=== PATIENT | female | born 1970 | race Caucasian/White ===

== ENCOUNTER 2021-07-30 14:33 | Inpatient (IN) | payer MEDICAID ==
[~2021-07-30] VITALS: Ht 165.1 cm; Wt 113.4 kg
[2021-07-30] MEDS ORDERED: CELE200C PO (14:56)
[2021-07-30] MEDS ORDERED: AMLO-212 PO (14:56)
[2021-07-30] MEDS ORDERED: ATOR40TA PO (14:56)
[2021-07-30] MEDS ORDERED: VENL75TA4 PO (14:56)
[2021-07-30] MEDS ORDERED: FERR325T28 PO (14:56)
[2021-07-30] MEDS ORDERED: PANT40TA49 PO (14:56)
[2021-07-30] MEDS ORDERED: ASPI81TA31 PO (14:56)
[2021-07-30] MEDS ORDERED: GABA600T12 PO (14:56)
[2021-07-30] MEDS ORDERED: FURO-152 PO (14:56)
[2021-07-30] MEDS ORDERED: LOSA25TA27 PO (14:56)
[2021-07-30] MEDS ORDERED: IBUP-1955 PO (14:56)
[2021-07-30 15:09] LABS: HEMATOCRIT 37.1 % (31.2-41.9); MEAN CORPUSCULAR HEMOGLOBIN 31.2 uug (24.7-32.8); MEAN CORPUSCULAR VOLUME 89.8 fL (75.5-95.3); PLATELET COUNT (AUTO) 370 K/uL (179-408)
[2021-07-30 15:17] LABS: CARBON DIOXIDE 30 mmol/L (21-32); CHLORIDE 99 mmol/L (98-107); CREATININE 0.9 mg/dL (0.6-1.3); GLUCOSE 95 mg/dL (74-106); POTASSIUM 4.3 mmol/L (3.5-5.1); UREA NITROGEN, BLOOD 16 mg/dL (7-18)
[2021-07-30 15:18] LABS: ETHANOL < 3 MG/DL (0-0)
[2021-07-30 15:23] LABS: ALANINE AMINOTRANSFERASE 14 U/L (14-59); ALKALINE PHOSPHATASE 126 U/L (50-136); ASPARTATE AMINOTRANSFERASE 13 U/L (15-37); BILIRUBIN,DIRECT 0.1 mg/dL (0.0-0.2); BILIRUBIN,TOTAL 0.2 mg/dL (0.2-1.0); TOTAL PROTEIN, SERUM 8.3 g/dL (6.4-8.2)
[2021-07-30 15:28] LABS: ACETAMINOPHEN < 2.0 ug/mL (10-30)
--- NOTE | 2021-07-30 19:36 | NUR ---
placed an in and out cath for urine pt agreed for a male to perform. Clark MILLER charge at bedside to assist. Urine sent to the lab, Dr. Gunn notified.
[2021-07-30 19:43] LABS: *BILIRUBIN,URIN NEGATIVE (NEGATIVE); *CLARITY,URINE CLEAR (CLEAR); *COLOR,URINE YELLOW (YELLOW); *KETONES,URINE 2+ (NEGATIVE); LEUKOCYTE ESTERASE ,URINE NEGATIVE (NEGATIVE); NITRITE, URINE NEGATIVE (NEGATIVE); PH,URINE 6.5 (5.0-8.0); UGLUCOSE NEGATIVE (NEGATIVE)
[2021-07-30 19:46] LABS: *BLOOD, URINE TRACE (NEGATIVE)
[2021-07-30 19:54] LABS: BACTERIA,URINE NONE SEEN /HPF (NONE SEEN); RBC,URINE 0-3 /HPF (0-3); SQUAMOUS EPITHELIAL CELL,UR MANY /HPF (NONE SEEN); WBC,URINE 0-3 /HPF (0-3)
[2021-07-30 20:01] LABS: *AMPHETAMINE, URINE NEGATIVE (NEGATIVE); *CANNABINOID, URINE POSITIVE (NEGATIVE); *COCCAINE, URINE NEGATIVE (NEGATIVE); *OPIATE, URINE NEGATIVE (NEGATIVE); *PHENCYCLIDINE SCREEN,URINE NEGATIVE (NEGATIVE)
--- NOTE | 2021-07-30 22:00 | NUR ---
pt arouses when her name is called no signs of pain noted.
[2021-07-31] VITALS (16 sets, daily range): BP systolic 118–143; BP diastolic 53–97
--- NOTE | 2021-07-31 01:14 | NUR ---
pt a/o denies any pain. no signs of distress. pt was pulled up in the gourney.
--- NOTE | 2021-07-31 01:49 | NUR ---
pt transported to a hospital bed.
--- NOTE | 2021-07-31 02:12 | NUR ---
spoke with Indu MILLER at [facility]. Her call back number is [phone] pt resisides at [address] [place] [address].
--- NOTE | 2021-07-31 03:44 | NUR ---
informed Dr. Gunn of pt's continued tachycardia, increased o2 to 4 liters as spo2 is 91 on 2 liters nc.
[2021-07-31] MEDS ORDERED: IV NS 1000 ML 1,000 ML IV ONE (04:15)
--- NOTE | 2021-07-31 04:29 | NUR ---
pt with increased work of breathing, Dr. Gunn made aware. pt was cleaned had inc of stool and urine. lab called with positive covid results.
--- NOTE | 2021-07-31 04:34 | NUR ---
respiratory therapist Juan Carlos is performing abg.
[2021-07-31] MEDS ORDERED: DEXAMETHASONE SOD PHOSPHATE 4 MG INJ ONE ×2 (04:39→06:54)
[2021-07-31 04:45] LABS: ABG BASE EXCESS -0.1 mmol/L; ABG HCO3 22.2 mmol/L; ABG PCO2 30.2 mmHg (35.0-45.0); ABG PH 7.484 (7.350-7.450); ABG PO2 80.8 mmHg (75.0-100.0); ABG SITE LEFT RADIAL; VENT MODE Nasal Cannula
[2021-07-31] MEDS ORDERED: DEXAMETHASONE SOD PHOSPHATE 4 MG INJ IV ONE ×2 (04:45→07:00)
--- NOTE | 2021-07-31 04:48 | NUR ---
abg ph 7.48 pco2 30.2 po2 80.8 hco3 22.2
[2021-07-31] MEDS ORDERED: IOHEXOL 300MG/ML 100 ML INFUS..BTL ONE (05:07)
[2021-07-31] MEDS ORDERED: SWABABLE VALVE TRANSFER SET EA MC ONE (05:07)
[2021-07-31] MEDS ORDERED: IV NORMAL SALINE 250 ML IV ONE (05:08)
[2021-07-31 05:13] LABS: HEMATOCRIT 36.5 % (31.2-41.9); MEAN CORPUSCULAR HEMOGLOBIN 30.6 uug (24.7-32.8); MEAN CORPUSCULAR VOLUME 88.5 fL (75.5-95.3); PLATELET COUNT (AUTO) 427 K/uL (179-408)
--- NOTE | 2021-07-31 05:25 | NUR ---
pt taken to cat scan by Conner MILLER.
--- NOTE | 2021-07-31 05:50 | NUR ---
pt returned from cat scan.
--- NOTE | 2021-07-31 06:16 | NUR ---
call to [facility] for admission, Dr. Loco was paged.
--- NOTE | 2021-07-31 06:43 | NUR ---
pt turned to change the diaper as she had stool and urine noted.
--- NOTE | 2021-07-31 06:51 | NUR ---
pt confused, trying to get oob, pulled back up. DR. Junior at bedside. call to RT for stat abg and hi flow nasal cannula.
--- NOTE | 2021-07-31 06:58 | NUR ---
call to [facility] second call.
[2021-07-31] MEDS ORDERED: CEFTRIAXONE 1 G in IV DEXTROSE 5% 50 ML IV ONE (07:00)
[2021-07-31] MEDS ORDERED: AZITHROMYCIN IV 500 MG in IV DEXTROSE 5% 250 ML IV ONE (07:00)
[2021-07-31] MEDS ORDERED: IPRATROPIUM BROMIDE 0.5 MG/2.5 ML NEBU NEB ONE (07:00)
[2021-07-31] MEDS ORDERED: ALBUTEROL SULFATE 2.5 MG/3 ML NEBU NEB ONE (07:00)
--- NOTE | 2021-07-31 07:00 | NUR ---
PER DR ARNDT ORDER, PATIENT PLACED ON HFNC AT 40LPM/100% FIO2.
--- NOTE | 2021-07-31 07:08 | NUR ---
report given to Kelli MILLER, pt go to ICU.
[2021-07-31] MEDS ORDERED: CEFTRIAXONE /D5W 50ML IVPB **ER PYXIS IV ONE (07:11)
[2021-07-31] MEDS ORDERED: ALBUTEROL SULFATE 2.5 MG/3 ML NEBU ONE (07:18)
[2021-07-31] MEDS ORDERED: IPRATROPIUM BROMIDE 0.5 MG/2.5 ML NEBU ONE (07:18)
[2021-07-31] MEDS ORDERED: ENOXAPARIN SODIUM 100 MG/ML DISP.SYRIN SQ ONE (08:00)
[2021-07-31] MEDS ORDERED: MAGNESIUM HYDROXIDE 30 ML LIQUID UDC PO PRN (08:00)
[2021-07-31] MEDS ORDERED: REMEDY ESSENTIAL ZINC PASTE 113 GM TP PRN (08:00)
--- NOTE | 2021-07-31 08:20 | NUR ---
Updated report given to recraviving Kelli MILLER in CCU.
--- NOTE | 2021-07-31 08:27 | NUR ---
Patient brought in from E.R. unit via bed assisted by Connie. Patient placed to bedside monitor and currently on Sinus tachycardia rate of 120-140's. pt. verbalized feeling SOB despite been on High flow 30L and 60%FIO2 with RR in the mid-to upper 20"s. At this time triage registered nurse Dr. Baugh in ad head to toe assessment done by . who orders titration of high flow to NC. and as reported by RT who remains at bedside rate just lowered before transferring to the unit. Pt. AAOx3 some confusion and delayed response noted to "s questions. diaper and linen changed done at this time pt. able to give some assistance.
--- NOTE | 2021-07-31 08:35 | NUR ---
Pt transfered via ACLS transfer by and Gage COSBY, to CCU bed 1.
[2021-07-31] MEDS: FUROSEMIDE 40 MG/4 ML VIAL IVP SCH ×2 (10:40→19:04)
[2021-07-31] MEDS: ENOXAPARIN SODIUM 60 MG/0.6 ML DISP.SYRIN SQ SCH ×2 (10:41→21:08)
--- NOTE | 2021-07-31 13:30 | NUR ---
At this time with attending in the unit pt. placed on nasal canula 2L. saturation remains wihin desired limits.
--- NOTE | 2021-07-31 13:47 | NUR ---
Attending Clare Trammell in the unit to see and examine pt.
[2021-07-31] MEDS ORDERED: REMDESIVIR (CHARGED) 200 MG in IV NORMAL SALINE 210 ML IV ONE (14:00)
--- NOTE | 2021-07-31 14:47 | NUR ---
Patient placed on room air saturation of 94%. patient calm cooperative.
--- NOTE | 2021-07-31 15:40 | NUR ---
Pt. taken down for head ct. pt. tolerated procedure fairly c/o SOB while lying flat.
--- NOTE | 2021-07-31 19:30 | NUR ---
SBAR report from day shift RN .patient in bed awake ,alert and verbally responsive .trotter x4. COVID 19 + contact isolation observed . st on the heart monitor ST 118 to 120. patient denies chest pain . no respiratory distress noted on room air saturation 93 to 95 % ,no sob noted . breathing even unlabored ,all throughout lungs sounds diminished at the bases .non productive cough .placed call light with in reach and advised to call for help or assistance .
--- NOTE | 2021-07-31 19:45 | NUR ---
noted left ac heplock is out ,applied pressure dressing .
--- NOTE | 2021-07-31 20:00 | NUR ---
patient called and verbalizing she wants to go home informed patient that she is sick and currently in CCU unit and being treated for sob,respiratory failure and covid 19 +, patient verbalized understanding .
--- NOTE | 2021-07-31 20:15 | NUR ---
warm patient dinner tray , hob up patient able to feed self .
[2021-08-01] VITALS (13 sets, daily range): BP systolic 96–140; BP diastolic 66–92
[2021-08-01] MEDS: ONDANSETRON 4 MG/2 ML VIAL IV PRN (01:49)
--- NOTE | 2021-08-01 01:49 | NUR ---
patient called and verbalized she needs medication for nausea ,given emesis container at b/s. ZOFRAN prn given c/o nausea .
--- NOTE | 2021-08-01 03:30 | NUR ---
noticed patient desaturated 88 % on room air while she was sleeping placed oxygen nasal cannula at 3 liters/min saturation went up to 99 to 100%.
[2021-08-01 05:09] LABS: HEMATOCRIT 35.4 % (31.2-41.9); MEAN CORPUSCULAR HEMOGLOBIN 30.7 uug (24.7-32.8); MEAN CORPUSCULAR VOLUME 87.9 fL (75.5-95.3); PLATELET COUNT (AUTO) 382 K/uL (179-408)
[2021-08-01 05:34] LABS: THYROID STIMULATING HORMONE 1.068 mIU/mL (0.358-3.740)
[2021-08-01 06:05] LABS: BILIRUBIN,DIRECT 0.2 mg/dL (0.0-0.2); BILIRUBIN,TOTAL 0.6 mg/dL (0.2-1.0); CREATININE 0.9 mg/dL (0.6-1.3); MAGNESIUM 1.9 mg/dL (1.8-2.4); TOTAL PROTEIN, SERUM 7.6 g/dL (6.4-8.2)
[2021-08-01 06:11] LABS: POTASSIUM 2.5 mmol/L (3.5-5.1)
[2021-08-01] MEDS: AZITHROMYCIN IV 500 MG in IV DEXTROSE 5% 250 ML IV SCH (06:16)
[2021-08-01] MEDS: PANTOPRAZOLE SODIUM 40 MG TABLET.DR PO SCH (06:39)
--- NOTE | 2021-08-01 07:00 | NUR ---
Received pt. on 3 C AAOX2-3. with periods of restlessness and attempting to get out of bed. Hemodynamically stable on NSR with sbp within desired. limits. Cuellar to gravity. IV line patent. Will continue with care plan.
[2021-08-01] MEDS ORDERED: CEFTRIAXONE 1 G in IV DEXTROSE 5% 50 ML IV SCH (08:00)
--- NOTE | 2021-08-01 08:00 | NUR ---
Attending on the phone report given orders to down-grade pt. to telemetry status.
[2021-08-01] MEDS ORDERED: IV NS 1000 ML 1,000 ML IV PRN (08:15)
[2021-08-01] MEDS: POTASSIUM CHLORIDE 20 MEQ TAB.PRT.SR PO SCH ×5 (08:16→13:11)
[2021-08-01] MEDS: DEXAMETHASONE SOD PHOSPHATE 4 MG INJ IV SCH (08:17)
[2021-08-01] MEDS: POTASSIUM CHLORIDE 50 ML IV SCH ×4 (08:22→12:08)
[2021-08-01] MEDS: ENOXAPARIN SODIUM 60 MG/0.6 ML DISP.SYRIN SQ SCH ×2 (08:36→21:02)
--- NOTE | 2021-08-01 09:00 | NUR ---
Pulmonary services Dr. Valadez in the unit to follow up on pt. report given.
--- NOTE | 2021-08-01 12:11 | NUR ---
Telephone report given to Jacinto Bermudez All systems reported pending interventions endorsed. pt. will be taken via wheel-chair to room 307.
--- NOTE | 2021-08-01 13:15 | NUR ---
Patient taken up to medical surgical floor via wheel-chair, assisted by Connie. Patient left AAOX3. vitals stable.
--- NOTE | 2021-08-01 13:30 | NUR ---
PATIENT WAS TRANSFERED FROM CCU TO [facility]. REPORT RECEIVED FROM CCU RN. PT ARRIVE VIA WHEELCHAIR. PT IS COVID POSITIVE. NO SOB. ON 2L/MIN NC. AO X4. AMBULATORY WITH ASSITANCE. FC INTACT AND DRAINING. STABLE VITALS. ABG NORMAL. NEG CT/ CXR. SINUS RHYTHM. ON CARDIAC DIET. NO COMPLAIN OF PAIN. IV LEFT UA 20G INTACT AND PATENT. RIGHT WRIST 20G INTACT AND PATENT. Addendum: 08/01/21 at 1902 by STACIE AMARAL RN PT SKIN INTACT NO VISIBLE REDNESS OR OPEN WOUND.
[2021-08-01] MEDS: ACETAMINOPHEN 325 MG TABLET PO PRN (15:13)
--- NOTE | 2021-08-01 15:20 | NUR ---
PATIENT COMPLAIN OF BACK PAIN. TYLENOL 650MG PRN WAS GIVEN. AND HOT PACK WAS GIVEN TO ALLEVIATE THE PAIN. WILL REASSESS IN 1HR
[2021-08-01] MEDS: REMDESIVIR (CHARGED) 100 MG in IV NORMAL SALINE 100 ML IV SCH (15:26)
--- NOTE | 2021-08-01 16:30 | NUR ---
TYLENOL AND HOT PACK WAS EFFECTIVE. PATIENT IS RELAXED AND VERBALIZED RELIEF.
[2021-08-01] MEDS: LORAZEPAM 0.5 MG TABLET PO PRN (21:00)
[2021-08-01] MEDS: ATORVASTATIN 40 MG TABLET PO SCH (21:00)
[2021-08-02 00:09] VITALS: BP 116/81
[2021-08-02] MEDS: ACETAMINOPHEN 325 MG TABLET PO PRN ×3 (03:09→20:44)
[2021-08-02 04:27] VITALS: BP 125/80
[2021-08-02] MEDS: PANTOPRAZOLE SODIUM 40 MG TABLET.DR PO SCH (06:01)
[2021-08-02] MEDS: AZITHROMYCIN IV 500 MG in IV DEXTROSE 5% 250 ML IV SCH (06:01)
[2021-08-02] MEDS: LORAZEPAM 0.5 MG TABLET PO PRN ×3 (06:02→21:55)
--- NOTE | 2021-08-02 06:54 | NUR ---
patient rested well in between care; c/o headache, tylenol given; c/o anxiety x2, ativan given as ordered; pt requested estrada to be discontinued; estrada dcd; will endorse to monitor urine output; ongoing azithromycin.
[2021-08-02 07:08] LABS: BILIRUBIN,DIRECT 0.2 mg/dL (0.0-0.2); BILIRUBIN,TOTAL 0.6 mg/dL (0.2-1.0); CREATININE 0.7 mg/dL (0.6-1.3); MAGNESIUM 2.3 mg/dL (1.8-2.4); POTASSIUM 3.5 mmol/L (3.5-5.1); TOTAL PROTEIN, SERUM 7.3 g/dL (6.4-8.2)
[2021-08-02 07:09] LABS: MEAN CORPUSCULAR HEMOGLOBIN 30.8 uug (24.7-32.8); MEAN CORPUSCULAR VOLUME 87.7 fL (75.5-95.3); PLATELET COUNT (AUTO) 397 K/uL (179-408)
[2021-08-02] MEDS: CEFTRIAXONE 2 G in IV DEXTROSE 5% 100 ML IV SCH (08:51)
[2021-08-02] MEDS: ASPIRIN 81 MG TAB.CHEW PO SCH (08:51)
[2021-08-02] MEDS: FERROUS SULFATE 325 MG TABEC PO SCH (08:51)
[2021-08-02] MEDS: DEXAMETHASONE SOD PHOSPHATE 4 MG INJ IV SCH (08:52)
[2021-08-02] MEDS: ENOXAPARIN SODIUM 60 MG/0.6 ML DISP.SYRIN SQ SCH ×2 (08:55→20:35)
[2021-08-02] MEDS: VENLAFAXINE 25 MG TABLET PO SCH (08:57)
[2021-08-02] MEDS ORDERED: POTASSIUM CHLORIDE 20 MEQ TAB.PRT.SR PO ONE (10:15)
[2021-08-02] MEDS: ONDANSETRON 4 MG/2 ML VIAL IV PRN ×2 (10:32→21:55)
[2021-08-02 12:00] VITALS: BP 101/71
[2021-08-02] MEDS: REMDESIVIR (CHARGED) 100 MG in IV NORMAL SALINE 100 ML IV SCH (13:44)
--- NOTE | 2021-08-02 14:46 | NUR ---
facilities planner consult requested for homelessness and discharge planning. Pt. is a 50-year old female who was admitted to [facility] on 07/31/2021 due to respiratory failure and COVID-19. Pt. is currently on the telemetry third floor at [facility] and is positive for COVID-19. facilities planner conducted the assessment via phone due to her COVID-19 diagnosis. Upon conference planner assessment, pt. is alert and oriented x4. Pt. presents with normal speech. Pt. presents with good judgment and insight. Pt. presents with a coherent thought process. facilities planner explored pt.s social support. Pt. stated she was in contact with her brother Juan Carlos Romero ([phone]). Pt. stated she did not have any other social support. facilities planner explored pt. 's living situation. Pt. stated she is homeless. Pt. stated she has been homeless for 6-months. facilities planner explored pt.s substance use history. Pt. stated she drinks alcohol and uses cannabinoids. Pt. stated she came from [facility] ([address] [place] [address]). Pt. stated she would like to return to [facility] to complete detoxification treatment. facilities planner called [facility] ([phone]) and spoke with Dasha. Dasha ([phone]) stated the pt. could not return to [facility] with COVID-19. Dasha ([phone]) stated that the pt. could call the facility to be readmitted when the pt. no longer has COVID19. facilities planner offered resources to [facility] [place] [address] ([phone]). Pt. will be alert and oriented x4 at discharge. Homeless waiver was signed and given to the patient and a copy was placed in the chart. TAP Card will be provided upon discharge. Plan: Upon Discharge, pt. will require nursing home placement if positive for COVID-19 upon discharge. If pt. is not positive for COVID-19 upon discharge, conference planner can help facilitate discharge to [facility] ([address] [place] [address]). facilities planner will remain available as needed.
--- NOTE | 2021-08-02 15:36 | NUR ---
[facility] reported positive MRSA in nares. Charge notified, notified, Ordered Bactroban.
[2021-08-02 16:00] VITALS: BP 109/70
--- NOTE | 2021-08-02 16:34 | NUR ---
CRITICAL TROPONIN OF 464 REPORTED BY LABORATORY. THIS LAB LEVEL IS DOWNWARD TRENDING FROM PREVIOUS DRAWS. WILL NOTIFY
[2021-08-02] MEDS: diphenhydrAMINE 50 MG CAPSULE PO PRN (18:53)
--- NOTE | 2021-08-02 18:54 | NUR ---
Pt complained of itchiness, removed excess tape from arms, obtained order for benadryl and administered per MD order.
[2021-08-02] MEDS: ATORVASTATIN 40 MG TABLET PO SCH (20:27)
[2021-08-02] MEDS: MUPIROCIN 2% OINT 22 GM TUBE NS SCH (20:29)
[2021-08-02 20:43] VITALS: BP 100/72
[2021-08-03 00:27] VITALS: BP 120/77
[2021-08-03 04:56] VITALS: BP 104/75
--- NOTE | 2021-08-03 05:08 | NUR ---
Received patient in bed. Able to make needs known. Able to use bedside commode. Administered PRN Ativan and Tylenol. Patient had relief and slept through the night.
[2021-08-03] MEDS: PANTOPRAZOLE SODIUM 40 MG TABLET.DR PO SCH (06:07)
[2021-08-03] MEDS: AZITHROMYCIN IV 500 MG in IV DEXTROSE 5% 250 ML IV SCH (06:07)
[2021-08-03 06:19] LABS: HEMATOCRIT 37.3 % (31.2-41.9); MEAN CORPUSCULAR HEMOGLOBIN 30.3 uug (24.7-32.8); PLATELET COUNT (AUTO) 393 K/uL (179-408)
[2021-08-03 06:31] LABS: BILIRUBIN,DIRECT 0.1 mg/dL (0.0-0.2); BILIRUBIN,TOTAL 0.2 mg/dL (0.2-1.0); CREATININE 0.8 mg/dL (0.6-1.3); MAGNESIUM 2.1 mg/dL (1.8-2.4); PHOSPHOROUS 3.3 mg/dL (2.5-4.9); POTASSIUM 3.7 mmol/L (3.5-5.1); TOTAL PROTEIN, SERUM 6.9 g/dL (6.4-8.2)
[2021-08-03] MEDS: CEFTRIAXONE 2 G in IV DEXTROSE 5% 100 ML IV SCH (08:18)
[2021-08-03] MEDS: DEXAMETHASONE SOD PHOSPHATE 4 MG INJ IV SCH (08:19)
[2021-08-03] MEDS: ASPIRIN 81 MG TAB.CHEW PO SCH (08:19)
[2021-08-03] MEDS: MUPIROCIN 2% OINT 22 GM TUBE NS SCH ×2 (08:19→20:37)
[2021-08-03] MEDS: FERROUS SULFATE 325 MG TABEC PO SCH (08:20)
[2021-08-03] MEDS: ACETAMINOPHEN 325 MG TABLET PO PRN ×3 (08:20→20:37)
[2021-08-03] MEDS: VENLAFAXINE 25 MG TABLET PO SCH (08:20)
[2021-08-03] MEDS: LORAZEPAM 0.5 MG TABLET PO PRN ×2 (08:20→20:37)
[2021-08-03] MEDS: ENOXAPARIN SODIUM 60 MG/0.6 ML DISP.SYRIN SQ SCH ×2 (08:58→20:38)
--- NOTE | 2021-08-03 11:07 | NUR ---
Received pt.resting in bed AAOX2-3. respirations even and unlabored at RA sat 96% C/O of feeling anxious medicated with Ativan 0.5 mg as ordered. Able to use bedside commode . Hemodynamically stable on NSR on TELE. Cuellar Catheter was D/C. Continue on ATB IV therapy. IV line patent intact. Will continue with plan of care.
[2021-08-03 12:00] VITALS: BP 121/82
[2021-08-03] MEDS: REMDESIVIR (CHARGED) 100 MG in IV NORMAL SALINE 100 ML IV SCH (13:35)
[2021-08-03] MEDS: diphenhydrAMINE 50 MG CAPSULE PO PRN ×2 (14:30→23:25)
[2021-08-03 16:00] VITALS: BP 112/77
[2021-08-03 20:00] VITALS: BP 105/70
[2021-08-03] MEDS: ATORVASTATIN 40 MG TABLET PO SCH (20:37)
[2021-08-04] VITALS: BP 102/75
[2021-08-04 04:00] VITALS: BP 118/76
--- NOTE | 2021-08-04 05:36 | NUR ---
Slept throughout the night. Denies pain or SOB, pt on RA tolerating well. Tolerated all medications given. IV site intact. Safety maintained throughout the shift. Will endorse to day shift.
[2021-08-04] MEDS: ACETAMINOPHEN 325 MG TABLET PO PRN ×3 (06:07→20:20)
[2021-08-04] MEDS: PANTOPRAZOLE SODIUM 40 MG TABLET.DR PO SCH (06:07)
[2021-08-04] MEDS: LORAZEPAM 0.5 MG TABLET PO PRN ×3 (06:07→21:17)
[2021-08-04 06:09] LABS: HEMATOCRIT 41.5 % (31.2-41.9); MEAN CORPUSCULAR HEMOGLOBIN 30.3 uug (24.7-32.8); MEAN CORPUSCULAR VOLUME 88.7 fL (75.5-95.3); PLATELET COUNT (AUTO) 411 K/uL (179-408)
[2021-08-04 06:40] LABS: BILIRUBIN,DIRECT 0.1 mg/dL (0.0-0.2); BILIRUBIN,TOTAL 0.2 mg/dL (0.2-1.0); CREATININE 0.8 mg/dL (0.6-1.3); POTASSIUM 3.7 mmol/L (3.5-5.1); TOTAL PROTEIN, SERUM 7.6 g/dL (6.4-8.2)
--- NOTE | 2021-08-04 08:00 | NUR ---
Patient is AAO x4, able to make needs known. Denies any chest pain. C/O lower back pain, relieved somewhat when changing position and ambulating.Breath sounds are clear, no sob, no coughing noted. Patient remains on RA with COVID isolation precautions. Patient has a good appetite. All needs attended, call light within reach.
[2021-08-04] MEDS: CEFTRIAXONE 2 G in IV DEXTROSE 5% 100 ML IV SCH (08:40)
[2021-08-04] MEDS: ASPIRIN 81 MG TAB.CHEW PO SCH (08:41)
[2021-08-04] MEDS: DEXAMETHASONE SOD PHOSPHATE 4 MG INJ IV SCH (08:41)
[2021-08-04] MEDS: MUPIROCIN 2% OINT 22 GM TUBE NS SCH ×2 (08:41→20:21)
[2021-08-04] MEDS: FERROUS SULFATE 325 MG TABEC PO SCH (08:41)
[2021-08-04] MEDS: ENOXAPARIN SODIUM 60 MG/0.6 ML DISP.SYRIN SQ SCH ×2 (08:47→20:20)
[2021-08-04] MEDS ORDERED: AZITHROMYCIN 250 MG TABLET PO SCH (09:00)
[2021-08-04] MEDS: VENLAFAXINE 25 MG TABLET PO SCH (09:02)
[2021-08-04] MEDS: diphenhydrAMINE 50 MG CAPSULE PO PRN ×2 (11:00→17:38)
[2021-08-04 12:07] VITALS: BP 120/82
--- NOTE | 2021-08-04 12:20 | NUR ---
Patient to go to [facility] for CTA of heart with 3D, consent signed and IV started to right AC, 18 gauge. Patients Covid rapid test is positive. MD aware as well as CTA tech.
[2021-08-04] MEDS: REMDESIVIR (CHARGED) 100 MG in IV NORMAL SALINE 100 ML IV SCH (13:35)
--- NOTE | 2021-08-04 13:44 | NUR ---
Patient given Ativan as per orders, given before the 8th hour since patient reports claustrophobia and anxiety when having CT's done and when laying flat.
--- NOTE | 2021-08-04 14:36 | NUR ---
Patient is on telemetry, normal sinus rhythm with HR in the 70's. Patient transported to [facility] for CTA of heart at this time.
[2021-08-04 16:00] VITALS: BP 116/78
--- NOTE | 2021-08-04 16:30 | NUR ---
Patient back from CTA of heart in no acute distress, resumed on telemetry, SR with heart rate of 60-70's. Patient request to have MD Anna made aware, unable to prescribe this medication in this facility. Patient is aware.
--- NOTE | 2021-08-04 18:39 | NUR ---
patient c/o pain to lower back, FANNIE Hoff made aware with new orders for Lidocaine patch. Orders noted and carried out.
[2021-08-04] MEDS ORDERED: LIDOCAINE 5% PATCH TD SCH (18:45)
--- NOTE | 2021-08-04 20:00 | NUR ---
RECEIVED PATIENT AWAKE IN BED. A/O X4. C/O DISCOMFORT IN LOWER BACK. ASKING FOR TYLENOL 650MG PO PRN FOR DISCOMFORT. NO RESP. DISTRESS NOTED. VS WNL. ON TELE SR. ON RA SATING WELL. DENIES ANY CHEST PAIN. CALL LIGHT IN REACH. ALL NEEDS ATTENDED. WILL CONTINUE TO MONITOR AND ASSESS.
[2021-08-04] MEDS: ATORVASTATIN 40 MG TABLET PO SCH (20:19)
[2021-08-04 20:25] VITALS: BP 110/74
[2021-08-05 00:03] VITALS: BP 122/82
[2021-08-05 04:38] VITALS: BP 127/87
[2021-08-05] MEDS: LORAZEPAM 0.5 MG TABLET PO PRN ×2 (05:30→14:12)
[2021-08-05] MEDS: ACETAMINOPHEN 325 MG TABLET PO PRN ×2 (05:30→14:12)
[2021-08-05] MEDS: PANTOPRAZOLE SODIUM 40 MG TABLET.DR PO SCH (06:34)
[2021-08-05 06:36] LABS: HEMATOCRIT 44.3 % (31.2-41.9); MEAN CORPUSCULAR VOLUME 89.4 fL (75.5-95.3); PLATELET COUNT (AUTO) 349 K/uL (179-408)
[2021-08-05 06:50] LABS: MAGNESIUM 2.2 mg/dL (1.8-2.4); PHOSPHOROUS 4.1 mg/dL (2.5-4.9); POTASSIUM 3.8 mmol/L (3.5-5.1)
[2021-08-05] MEDS: FERROUS SULFATE 325 MG TABEC PO SCH (08:53)
[2021-08-05] MEDS: DEXAMETHASONE SOD PHOSPHATE 4 MG INJ IV SCH (08:53)
[2021-08-05] MEDS: MUPIROCIN 2% OINT 22 GM TUBE NS SCH (08:54)
[2021-08-05] MEDS: ASPIRIN 81 MG TAB.CHEW PO SCH (08:54)
[2021-08-05] MEDS: VENLAFAXINE 25 MG TABLET PO SCH (08:54)
[2021-08-05] MEDS: ENOXAPARIN SODIUM 60 MG/0.6 ML DISP.SYRIN SQ SCH (09:03)
--- NOTE | 2021-08-05 10:00 | NUR ---
Patient is AAO x4. Denies any pain or coughing. minimal SOB noted, Remains on RA. Sinus rhythm on telemetry. Able to ambulate, steady gait. Has a good appetite, able to eat 100% of breakfast. COVID isolation continued. All needs attended, call light within reach.
[2021-08-05 11:12] VITALS: BP 115/79
[2021-08-05] MEDS: diphenhydrAMINE 50 MG CAPSULE PO PRN (11:37)
--- NOTE | 2021-08-05 14:02 | NUR ---
Process Automation Engineer did a follow up for a patient on medsurg. Patient is a 50-year-old female admitted to the hospital for covid and respiratory failure. SW assessed the patients discharge plan. Patient stated that she wanted to go back to [facility] ([address] [place] [id number]) because all of her belongings were there, and she needed to pick them up. Patient will be offered a TAP card if needed. SW offered the patient resources to [address], [address] [address] ([phone]). SW reached out to [address] [address] ([phone]) to see if they have a bed available. Micky ([phone]) stated that there are not beds available currently, but [facility] and give her a ticket number. Micky stated the patient would be the 9th woman on the waitlist. Patient stated at discharge she will be going back to [facility] to slate picker her belongings ([address] [place] [address]).
[2021-08-05 15:03] VITALS: BP 117/76
--- NOTE | 2021-08-05 17:31 | NUR ---
Patient discharged at this time, provided clothes and taxi voucher as per [facility] Patient is Alert x4, understands all discharge instructions and will continue to isolate for COVID 19. Patient will leaf size picker medications at [facility] pharmacy on profile. Per patient son was able to pay for a hotel for her and she will go there after she picks up belongings from [facility].
[2021-08-05] MEDS ORDERED: LIDOCAINE 5% PATCH TD SCH (21:00)
== END 2021-08-05 17:35 | disposition home or self-care (01) | DRG 137 ==
LOC: ER 14:33 → CCU 07-31 08:27 → TELE3 08-01 13:41
PROVIDERS: ADMIT Nurse Practitioner Family; ATTEND Nurse Practitioner Acute Care
PROC: XW033E5 Introduction of Remdesivir Anti-infective into Peripheral Vein, Percutaneous Approach, New Technology Group 5 (ICD-10-PCS; principal; 2021-07-31)
DX: U07.1 COVID-19 (principal); J96.01 Acute respiratory failure with hypoxia; J12.82 Pneumonia due to coronavirus disease 2019; G92.8 Other toxic encephalopathy; I21.A1 Myocardial infarction type 2; J15.9 Unspecified bacterial pneumonia; J84.9 Interstitial pulmonary disease, unspecified; E66.01 Morbid (severe) obesity due to excess calories; E87.6 Hypokalemia; I10 Essential (primary) hypertension; T38.0X5A Adverse effect of glucocorticoids and synthetic analogues, initial encounter; D72.828 Other elevated white blood cell count; F11.20 Opioid dependence, uncomplicated; Z22.322 Carrier or suspected carrier of Methicillin resistant Staphylococcus aureus; Z79.82 Long term (current) use of aspirin; Z96.651 Presence of right artificial knee joint; E78.5 Hyperlipidemia, unspecified; Z68.41 Body mass index [BMI] 40.0-44.9, adult; E87.70 Fluid overload, unspecified; T40.715A Adverse effect of cannabis, initial encounter; Y92.89 Other specified places as the place of occurrence of the external cause
CPT/HCPCS: 36415; 36600; 70450; 71045; 83605; 83615; 83690; 83735; 84100; 84443; 84484; 85025; 85610; 85730; 86140; 87040; 87400; 93307; 94640; A4663; C1758; G0378; G0480; J0456; J0696; J1100; J1650; J1940; J2405; J3480; J3590; J7040; J7050; Q0144; Q0163; Q9967